=== PATIENT | female | born 1955 | race Caucasian/White ===

== ENCOUNTER → 2021-01-18 01:15 | Outpatient (CLI) | payer MEDICARE, SELFPAY ==
[2021-01-18 18:48] LABS: SARS-CoV-2 RNA PCR Negative
== END ==
PROVIDERS: PCP Family Medicine; Visit Provider Surgery
DX: Z01.812 Encounter for preprocedural laboratory examination (principal); Z20.822 Contact with and (suspected) exposure to COVID-19
CPT/HCPCS: C9803; U0003; U0005

== ENCOUNTER 2021-01-21 01:19 | Day surgery (SDC) | payer MEDICARE, OTHER, SELFPAY ==
[2021-01-11 16:04] VITALS: BMI 32.5
[2021-01-21 08:39] VITALS: BP 141/82; PULSE 119; RESP 18; TEMP 36.8; O2SAT 100; BMI 39.6
[2021-01-21 09:00] LABS: Glucose Point of Care 144 mg/dl (65-105)
[2021-01-21] MEDS: ONDANSETRON INJ 4 MG/2 ML VIAL IV PUSH (09:05)
[2021-01-21] MEDS: LACTATED RINGERS 1,000 ML 150 ML IV CONT (09:08)
--- NOTE | 2021-01-21 09:55 | P.PNAN_ITS ---
Anes - Initial Pre Proc Eval Procedure: Operation Date: 01/21/21 09:45 Proposed Procedures p Screening Colonoscopy - Jose Aguilera DO Date/Time: 01/21/21 09:55 Surgeon: Jose Aguilera DO Pre Op Diagnosis: screening for malignant neoplasm Patient Data Age: 65 Gender: F Height: 5 ft 4 in Weight: 104.9 kg Last Vital Signs Temp 98.2 F 01/21/21 08:39 Pulse 119 H 01/21/21 08:39 Resp 18 01/21/21 08:39 BP 141/82 H 01/21/21 08:39 Pulse Ox 100 01/21/21 08:39 Allergies Allergy/AdvReac Type Severity Reaction Status Date / Time codeine Allergy Severe CONFUSION Verified 01/21/21 08:37 latex Allergy Severe RASH/BREATH Verified 01/21/21 08:37 ING Home Medications Medication Instructions Recorded Confirmed Type acetaminophen [Tylenol Arthritis] 650 mg PO Q12H PRN 01/11/21 01/21/21 History aspirin 81 mg PO DAILY 01/11/21 01/21/21 History losartan 50 mg PO DAILY 01/11/21 01/21/21 History metformin 500 mg PO DAILY 01/11/21 01/21/21 History multivitamin 1 tablet PO DAILY 01/11/21 01/21/21 History pravastatin 40 mg PO DAILY 01/11/21 01/21/21 History sertraline 50 mg PO DAILY 01/11/21 01/21/21 History Laboratory Tests 01/21/21 08:58 POC Capillary Glucose 144 mg/dl H mg/dl (65-105) Patient hx anesthesia problems: none Family hx anesthesia problems: none [facility] Past Medical History Medical History (Updated 01/21/21 @ 09:55 by Reese Rand MD) Arthritis Hyperlipidemia Hypertension Social History Social History Living arrangements: alone Spiritual care concerns: No Anes - Eval Final PreProcedure Day of Procedure 01/21/21 09:55 Patient weight: morbidly obese Heart: regular rate and rhythm Lungs: clear to auscultation Airway: Mallampati scale class II Neurological: alert and oriented Last oral intake: >/= 8 hours ASA classification: III Emergent: no Anesthetic plan: proceed Anesthesia type and monitoring: general GIVS and standard monitoring Informed Consent: The patient's anesthetic plan and its attendant risks and benefits were discussed with the patient/family/POA. Questions were solicited and answers provided to the satisfaction of the patient/family/POA.
--- NOTE | 2021-01-21 10:25 | PM.IMHP ---
H&P: HPI History of Present Illness Date/Time: 01/21/21 10:25 Chief Complaint: screening for colorectal cancer for Narrative: this is a 65-year-old woman who presents for colonoscopy. Last colonoscopy was 11 years ago and was normal. She denies any hematochezia or melena. No family history of colon cancer. Review of Systems Review of Systems: All systems reviewed & are unremarkable except as noted in HPI and below Constitutional: Constitutional: Denies chills, Denies fever(s), Denies headache(s) and Denies weight loss Eyes: Eyes: Denies change in vision ENT: Denies dizziness, Denies headache(s), Denies neck mass and Denies throat swelling Cardiovascular: Cardiovascular: Denies chest pain, Denies lightheadedness and Denies dyspnea Respiratory: Respiratory: Denies cough, Denies dyspnea and Denies wheezing Gastrointestinal: Gastrointestinal: Denies abdominal pain, Denies change in bowel habits, Denies nausea and Denies vomiting Genitourinary: Genitourinary: Denies hematuria and Denies dysuria Musculoskeletal: Musculoskeletal: Reports as per HPI Integumentary/Breasts: Skin/Breast: Reports as per HPI Neurologic: Denies dizziness and Denies headache(s) Allergic/Immunologic: Allergic/Immunologic: Denies throat swelling and Denies wheezing [facility] Past Medical History Medical History (Updated 01/21/21 @ 10:26 by Jose Aguilera DO) Arthritis Hyperlipidemia Hypertension Social History Social History Living arrangements: alone Spiritual care concerns: No Meds Home Medications and Allergies Home Medications Medication Instructions Recorded Confirmed Type acetaminophen [Tylenol Arthritis] 650 mg PO Q12H PRN 01/11/21 01/21/21 History aspirin 81 mg PO DAILY 01/11/21 01/21/21 History losartan 50 mg PO DAILY 01/11/21 01/21/21 History metformin 500 mg PO DAILY 01/11/21 01/21/21 History multivitamin 1 tablet PO DAILY 01/11/21 01/21/21 History pravastatin 40 mg PO DAILY 01/11/21 01/21/21 History sertraline 50 mg PO DAILY 01/11/21 01/21/21 History Allergies Allergy/AdvReac Type Severity Reaction Status Date / Time codeine Allergy Severe CONFUSION Verified 01/21/21 08:37 latex Allergy Severe RASH/BREATH Verified 01/21/21 08:37 ING Vital Signs Vital Signs - 24 hr 01/21/21 08:39 Temperature 36.8 C Pulse Rate 119 H Respiratory Rate 18 Blood Pressure 141/82 H Pulse Oximetry 100 Exam Const: General: no acute distress and alert Orientation/consciousness: patient oriented x3 HENMT: Head: normocephalic and atraumatic Ears: hearing grossly normal bilaterally General nose exam: Normal nares present Mouth: Yes Normal oral and palatal mucosa present Eyes: Periorbital: periorbital findings normal Sclera: sclerae normal EOM: EOMs intact bilaterally Neck: Neck: normal visual inspection, no lymphadenopathy and trachea midline Chest: Chest palpation & inspection: normal inspection of the chest Resp: Effort & Inspection: normal respiratory effort Auscultation: clear to auscultation bilaterally Cardio: Jugular venous distension: no JVD Rate: regular rate Rhythm: regular rhythm Heart sounds: S1 normal heart sound present and S2 normal heart sound present Peripheral pulses: Peripheral pulses 2+ throughout GI: Inspection: normal to inspection GI Palp: Yes Soft to palpation, No Tenderness to palpation present (GI), No Guarding due to palpation present (GI) and No Rebound tenderness present Percussion: Yes normal to percussion Auscultation: normal bowel sounds : General: Yes no CVA tenderness Back/Spine/Pelvis: Back: no CVA tenderness Neuro: General: patient oriented x3, no focal motor deficits and CN's II-XI intact bilaterally Cognition (Neuro): normal cognition Speech: normal speech Motor exam (neuro): 5/5 motor strength present throughout Extrem: General: capillary refill normal and no clubbing, cyanosis or edema Assessment and Plan Assessment and plan (1) Screening for
[2021-01-21 10:43] VITALS: BP 98/58; PULSE 72; RESP 18; O2SAT 98
[2021-01-21 10:53] VITALS: BP 129/64; PULSE 67; RESP 19; O2SAT 99
[2021-01-21 11:03] VITALS: BP 146/82; PULSE 68; RESP 21; O2SAT 100
== END 2021-01-21 11:20 | disposition home or self-care (01) ==
PROVIDERS: PCP Family Medicine; Visit Provider Surgery
PROC: 0DJD8ZZ Inspection of Lower Intestinal Tract, Via Natural or Artificial Opening Endoscopic (ICD-10-PCS; CPT 45378; principal; 2021-01-21 09:45)
DX: Z12.11 Encounter for screening for malignant neoplasm of colon (principal); K57.30 Diverticulosis of large intestine without perforation or abscess without bleeding; K64.8 Other hemorrhoids; I10 Essential (primary) hypertension; E78.5 Hyperlipidemia, unspecified; Z79.82 Long term (current) use of aspirin; E66.01 Morbid (severe) obesity due to excess calories; Z68.39 Body mass index [BMI] 39.0-39.9, adult
CPT/HCPCS: G0121; 82948; J2405; J2704; J7120

== ENCOUNTER 2021-05-03 07:52 | Outpatient (CLI) | payer MEDICARE, OTHER, SELFPAY ==
--- NOTE | 2021-05-03 09:30 | EST_ITS ---
Patient Info Name: Daniella Hutson Age: 65 years : 1955 Gender: Female Ht: 62 in Wt: 220 lbs BSA: 2.14 m2 Exam Date: 05/03/2021 9:37 AM Exam Location: [facility] Patient Status: Outpatient Admit Date: 05/03/2021 Staff Ordering Physician: Fermin Castro MD Attending Provider: Fermin Castro MD Exam Type: CA stress augie w NM Study Info A nuclear stress test was performed. History/Risk Factors Hypertension: Yes Diabetes Mellitus: Yes Summary 1. 1. Negative lexiscan stress test for ischemic ST changes by ECG criteria. 2. 2. Stable hemodynamics throughout the test. 3. 3. Nuclear scan to follow and will be reported separately. Please correlate with it. Protocol: LEXISCAN Stress ECG Details Stage: REST Duration (min): 2 min : 46 sec HR (bpm): 75 SBP (mmHg): --- DBP (mmHg): --- Stage: REST Duration (min): 13 min : 51 sec HR (bpm): 78 SBP (mmHg): --- DBP (mmHg): --- Stage: STAGE 1 Duration (min): 0 min : 11 sec HR (bpm): 72 SBP (mmHg): --- DBP (mmHg): --- Stage: RECOVERY Duration (min): 0 min : 48 sec HR (bpm): 94 SBP (mmHg): --- DBP (mmHg): --- Stage: RECOVERY Duration (min): 1 min : 48 sec HR (bpm): 96 SBP (mmHg): --- DBP (mmHg): --- Stage: RECOVERY Duration (min): 2 min : 48 sec HR (bpm): 89 SBP (mmHg): 138 DBP (mmHg): 68 Stage: RECOVERY Duration (min): 3 min : 48 sec HR (bpm): 88 SBP (mmHg): 135 DBP (mmHg): 65 Stage: RECOVERY Duration (min): 4 min : 48 sec HR (bpm): 91 SBP (mmHg): 128 DBP (mmHg): 67 Stage: RECOVERY Duration (min): 5 min : 48 sec HR (bpm): 86 SBP (mmHg): 132 DBP (mmHg): 63 Stage: RECOVERY Duration (min): 6 min : 20 sec HR (bpm): 87 SBP (mmHg): 132 DBP (mmHg): 63 Rest HR: 78 bpm Peak HR: 106 bpm Peak Sys BP: 138 mmHg Max Pred HR: 155 bpm % Max Pred HR: 68 % Target HR: 132 bpm Max RPP: 14,628 bpm*mmHg Termination Reason: Completed Protocol Cardiac Symptoms: None Total Time: 0 min : 11 sec Peak Lr BP: 68 mmHg Total Dose: 0.4 mg Resting ECG Sinus Rhythm with RBBB. Stress ECG No ischemic ST segment changes. Arrhythmias None. Report Signatures
--- NOTE | 2021-05-03 11:51 | WPDCARIOSTRE ---
Nuclear Stress Test INDICATIONS Indications: SOB, fatigue PROCEDURE Procedure Performed: Myocardial Perf Spect-Multi Procedure: Patient underwent a lexiscan stress test and immediately was injected with 32.3 mCi of cardiolyte. Multiple tomographic images were obtained. These are of good quality. There is evidence of moderate size, severe apical perfusion defect during stress imaging. A separate resting images were obtained after patient was injected with 10 mCi of cardiolote. Multiple tomographic images were obtained. These are of good quality. There is evidence of moderate size, severe apical perfusion defect during rest imaging. CONCLUSION Conclusion: 1. Myocardial perfusion imaging demonstrating a fixed moderate size apical perfusion defect during rest and stress imaging consistent with artifact. 2. No evidence of reversible ischemia. 3. Left ventriculogram demonstrates normal measured ejection fraction of 74%. No wall motion abnormalities. The left ventricle is small with EDV of 34 m. 4. TID score is normal at 1.15.
== END 2021-05-03 07:53 | disposition home or self-care (01) ==
LOC: CHSIMG 07:55
PROVIDERS: PCP Family Medicine; Visit Provider Family Medicine
DX: R94.31 Abnormal electrocardiogram [ECG] [EKG] (principal)
CPT/HCPCS: 78452; 93017; A9502; J2785

== ENCOUNTER 2021-05-18 09:15 | Outpatient (CLI) | payer MEDICARE, OTHER, SELFPAY ==
--- NOTE | ~2021-05-18 | XR_ITS ---
XR hand RT min 3V DATE: 05/18/2021 09:44 INDICATION: Palm pain, right hand hand TECHNIQUE: 3 views COMPARISON: None FINDINGS: There is polyarticular osteoarthritis, involving the first carpometacarpal joint, metacarpo phalangeal joints (especially first and second), as well as multiple interphalangeal joints. No fracture or dislocation, periosteal reaction or bone destruction. IMPRESSION: Polyarticular osteoarthritis Reviewed, dictated and finalized at location A.
== END 2021-05-18 09:16 | disposition home or self-care (01) ==
LOC: CHSIMG 09:18
PROVIDERS: PCP Family Medicine; Visit Provider Orthopaedic Surgery
DX: M79.641 Pain in right hand (principal)
CPT/HCPCS: 73130

== ENCOUNTER 2022-11-15 08:19 | Outpatient (CLI) | payer MEDICARE, SELFPAY | END 2022-11-15 08:20 | disposition home or self-care (01) | LOC: CHSCARD 08:21 | PROVIDERS: PCP Family Medicine; Visit Provider Family Medicine | DX: R05.3 Chronic cough (principal) | CPT/HCPCS: 94060; 94726; 94729 ==

== ENCOUNTER 2023-11-15 12:02 | Emergency (ER) | payer MEDICARE, SELFPAY ==
--- NOTE | 2023-11-15 12:05 | ED.URI ---
HPI - URI/Sore Throat General Chief Complaint: Upper Respiratory Infection Stated Complaint: bronchitis Time Seen by Provider: 11/15/23 12:05 Source: patient Mode of arrival: ambulatory Limitations: no limitations History of Present Illness HPI Narrative: Daniella is a 68-year-old female patient presenting to the clinic today with complaints of cough and chest congestion x1 week. She reports no fever or chills. She denies any chest pain or shortness of breath. History of asthma/bronchitis. Has been using her albuterol inhaler. MD elicited complaint: sore throat and nasal congestion Related Data Home Medications Medication Instructions Recorded Confirmed aspirin 81 mg tablet 81 mg PO DAILY 01/11/21 11/15/23 losartan 50 mg tablet 50 mg PO DAILY 01/11/21 11/15/23 multivitamin 1 tablet PO DAILY 01/11/21 11/15/23 pravastatin 40 mg tablet 40 mg PO DAILY 01/11/21 11/15/23 sertraline 50 mg tablet 50 mg PO DAILY 01/11/21 11/15/23 famotidine 20 mg tablet 20 mg PO DAILY 11/15/23 11/15/23 Allergies Allergy/AdvReac Type Severity Reaction Status Date / Time codeine Allergy Severe CONFUSION Verified 11/15/23 12:13 latex Allergy Severe RASH/BREATH Verified 11/15/23 12:13 ING Review of Systems Review of Systems: Pertinent positives per HPI. Patient denies any fever, chills, rash, headache, visual changes, dizziness,shortness of breath, chest pain, palpitations, nausea, vomiting, diarrhea, constipation, abdominal pain, or any urinary issues. [facility] Past Medical History Medical History Arthritis Depression Hyperlipidemia Hypertension Osteoporosis Urinary frequency Surgical History Surgical History History of cholecystectomy 1997 Family History Family History Other Arthritis Depression Diabetes mellitus HLD (hyperlipidemia) Heart disease Hypertension Lung cancer Stomach cancer Social History Social History Smoking status: Never smoker Alcohol intake: never Substance use: never Substance use type: does not use Living arrangements: alone Occupation/Education: retired Gender identity (if verbalized by the patient): Female Spiritual care concerns: No Comments At the time of my signature, I reviewed and agree with the nursing past medical, surgical, social, and family history. There is no relevant family history pertinent to the patient complaint. Exam Narrative: General: Well-developed, well nourished, in no apparent distress Head: Normocephalic, atraumatic Eyes: Pupils equally round and reactive to light bilaterally, EOM intact, sclera and conjunctive clear, no discharge, lids normal Ears: TMs intact and clear, ear canals clear, no drainage, grossly hearing normal. Nose: Nares patent, clear discharge, no inflammation, no sinus tenderness. Mouth: Oral pharynx without lesions or masses, good dentition, MMM. Postnasal drip Neck: Supple, trachea midline, no enlargement of anterior or posterior cervical nodes, no thyroid masses or goiter palpable. Cardio: Regular rate and rhythm, s1 and s2 normal, no murmur appreciated. Resp: Clear to auscultation bilaterally, no rhonchi, rales, wheezing or rubs Course Course Emergency Course: Portions of this record may have been created with voice recognition software. Level of Care: Express Care Visit Vital Signs Vital signs: Vital signs reviewed MDM - URI/Sore Throat MDM Narrative Medical decision making narrative: At the time of visit patient is resting comfortably on the exam table. Patient appears to be nontoxic.\ Plan: Lung sounds are clear in the office today. I suspect patient has URI. Prescription for Tessalon Perles and prednisone was sent to the pharmacy. Supportive measures were
[2023-11-15 12:23] VITALS: BP 136/51; PULSE 90; RESP 16; TEMP 37; O2SAT 98
== END 2023-11-15 12:39 | disposition home or self-care (01) ==
LOC: EXPCOLL 12:11
PROVIDERS: Emergency Provider Nurse Practitioner Family; PCP Family Medicine
DX: J06.9 Acute upper respiratory infection, unspecified (principal); E78.5 Hyperlipidemia, unspecified; I10 Essential (primary) hypertension; M19.90 Unspecified osteoarthritis, unspecified site; F32.A Depression, unspecified; Z79.82 Long term (current) use of aspirin; M81.0 Age-related osteoporosis without current pathological fracture
CPT/HCPCS: 99213; G0463

== ENCOUNTER 2023-12-06 11:57 | Outpatient (CLI) | payer MEDICARE, SELFPAY ==
--- NOTE | ~2023-12-06 | XR_ITS ---
XR lumbar spine 2-3V DATE: 12/06/2023 12:35 INDICATION: Back pain TECHNIQUE: AP, lateral, coned lateral lumbosacral views COMPARISON: None FINDINGS: Osteopenia. Diffuse idiopathic skeletal hyperostosis of the thoracic spine. Moderately prominent degenerative disease at L1-2. Mild degenerative disc disease at L2-3, L3-4 and L 4-5. There is severe degenerative disc disease at L5-S1. There is prominent degenerative change at the apophyseal joints throughout the lumbar spine. There is associated grade 1 anterolisthesis at L3-4. No fracture or bone destruction of the lumbar spine is evident. The sacroiliac joints are intact. Status post cholecystectomy. IMPRESSION: Prominent lumbar spondylosis Diffuse idiopathic skeletal hyperostosis of the thoracic spine Reviewed, dictated and finalized at location B.
== END 2023-12-06 11:58 | disposition home or self-care (01) ==
PROVIDERS: PCP Family Medicine; Visit Provider Family Medicine
DX: M54.50 Low back pain, unspecified (principal); M43.06 Spondylolysis, lumbar region; M48.16 Ankylosing hyperostosis [Forestier], lumbar region
CPT/HCPCS: 72100

== ENCOUNTER 2023-12-09 09:51 | Outpatient (CLI) | payer MEDICARE, SELFPAY ==
--- NOTE | ~2023-12-09 | MR_ITS ---
MRI of the lumbar spine Clinical History: Pain Technique: Axial T2-weighted images, and sagittal T1-weighted, T2-weighted, and T2 fat-sat images wer e acquired. Findings: No fracture identified. Minimal grade 1 anterolisthesis of L3 over L4 noted. No suspicious bone marrow signal abnormality seen. At L1-L2, there is mild disc bulge and moderate to advanced facet arthropathy. No central canal steno sis. There is mild to moderate bilateral neural foraminal narrowing. At L2-L3, there is minimal disc bulge and severe facet arthropathy. No central canal stenosis. There is moderate left neural foraminal narrowing. Minimal right neural foraminal narrowing. L3-L4, disc bulge and severe facet arthropathy result in severe spinal canal stenosis/thecal sac comp ression. There is moderate left neural foraminal narrowing, and minimal right neural foraminal narrow ing. At L4-L5, there is mild disc bulge and severe facet arthropathy, resulting in moderate spinal canal s tenosis/thecal sac compression. There is severe bilateral neural foraminal narrowing. At L5-S1, disc bulge and moderate facet arthropathy are present. No tahir central canal stenosis. The re is severe bilateral neural foraminal narrowing. Paravertebral soft tissues are unremarkable. Impression: Severe degenerative spondylosis, especially at L3-L4, L4-L5, and L5-S1. Minimal grade 1 anterolisthesis of L3 over L4. Reviewed, dictated and finalized at [facility]. Impression: Severe degenerative spondylosis, especially at L3-L4, L4-L5, and L5-S1. Minimal grade 1 anterolisthesis of L3 over L4.
== END 2023-12-09 09:52 | disposition home or self-care (01) ==
LOC: CHSIMG 09:53
PROVIDERS: PCP Family Medicine; Visit Provider Family Medicine
DX: M54.50 Low back pain, unspecified (principal); M43.06 Spondylolysis, lumbar region
CPT/HCPCS: 72148

== ENCOUNTER 2024-05-16 12:19 | Outpatient (CLI) | payer MEDICARE, SELFPAY ==
[2024-05-16 12:34] LABS: Basophils Absolute Auto 0.05 K/mm3 (0.00-0.10); Basophils Percent Auto 0.9 % (0.0-1.0); Eosinophils Percent Auto 3.7 % (1.0-6.0); Hematocrit 38.7 % (35.0-42.0); Hemoglobin 13.3 g/dL (11.7-13.8); Immature Granulocyte Absolute 0.02 K/mm3 (0.00-0.00); Immature Granulocyte Percent A 0.4 % (0.0-0.0); Lymphocytes Absolute Auto 1.81 K/mm3 (1.10-4.50); Lymphocytes Percent Auto 33.1 % (18.0-42.0); Mean Corpuscular HGB Conc 34.4 g/dL (32-36); Mean Corpuscular Hemoglobin 30.2 pg (27.0-31.0); Mean Corpuscular Volume 87.8 fL (78.0-102.0); Mean Platelet Volume 9.7 fl (9.2-11.8); Monocytes Absolute Auto 0.38 K/mm3 (0.10-0.90); Monocytes Percent Auto 6.9 % (2.0-11.0); Neutrophils Absolute Auto 3.01 K/mm3 (1.70-7.20); Platelet Count Result 203 K/mm3 (150-420); Red Blood Count 4.41 M/mm3 (4.20-5.40); Red Cell Distribution Width 12.7 % (11.6-14.4); White Blood Count 5.5 K/mm3 (4.8-10.8)
[2024-05-16 17:37] LABS: Alanine Aminotransferase 21 U/L (14-59); Alkaline Phosphatase 88 U/L (46-116); Anion Gap 9 mmol/L (4-12); Aspartate Amino Transferase 17 U/L (15-37); Bilirubin,Total 0.7 mg/dL (0.00-1.00); Blood Urea Nitrogen 21 mg/dL (7-18); Calcium 9.2 mg/dL (8.5-10.1); Carbon Dioxide 28 mmol/L (21-32); Chloride 103 mmol/L (98-108); Estimated Glomerular Filt Rate 60; Glucose 105 mg/dL (70-99); Osmolality Calculated 293 mOsm/kg (285-295); Potassium 4.2 mmol/L (3.5-5.1); Sodium 140 mmol/L (136-145); Thyroid Stimulating Hormone 2.63 uIU/mL (0.36-3.74); Total Protein 7.2 g/dL (6.4-8.2)
[2024-05-16 17:49] LABS: Creatinine Urine 120.44 mg/dL (40-278); MALB Creatinine Ratio 10.7 mg/g (0-30); Microalbumin Urine Random < 13.0 mg/L
[2024-05-17 06:48] LABS: Triglycerides 87 mg/dL (0-150)
[2024-05-17 06:55] LABS: Cholesterol 153 mg/dL (0-200); HDL Direct 66 mg/dL (40-60); LDL Cholesterol Calculated 70 mg/dL (<130)
== END 2024-05-16 12:20 | disposition home or self-care (01) ==
LOC: CHSLAB 12:22
PROVIDERS: PCP Family Medicine; Visit Provider Family Medicine
DX: I10 Essential (primary) hypertension (principal)
CPT/HCPCS: 36415; 80053; 80061; 82043; 84443; 85025

== ENCOUNTER 2025-06-13 11:55 | Outpatient (CLI) | payer MEDICARE, SELFPAY ==
--- NOTE | ~2025-06-13 | XR_ITS ---
XR lumbar spine 2-3V Indication: BACK PAIN, NECK PAIN Comparison: None Findings: Moderate loss of vertebral height. Grade 1 anterolisthesis of L3 on L4, no acute fracture. There is a remote inferior endplate fracture of L4. Moderate to severe loss of disc height throughout most marked at L5-S1. Soft tissues unremarkable Impression: No acute abnormality. Reviewed, dictated and finalized at location P. Impression: No acute abnormality.
--- NOTE | ~2025-06-13 | XR_ITS ---
XR_CERV2-3V_CR Indication: BACK PAIN, NECK PAIN Comparison: None Findings: Moderate osteopenia. Moderate loss of vertebral height. No fracture or subluxation. Moderate loss of disc height at C4-5 C5-6 and C6-7 Soft tissues unremarkable Impression: No acute abnormality. Reviewed, dictated and finalized at location P. Impression: No acute abnormality.
== END 2025-06-13 11:56 | disposition home or self-care (01) ==
LOC: CHSIMG 11:57
PROVIDERS: PCP Family Medicine; Visit Provider Nurse Practitioner Family
DX: M54.9 Dorsalgia, unspecified (principal); M54.2 Cervicalgia
CPT/HCPCS: 72040; 72100

== ENCOUNTER 2025-07-17 14:08 | Outpatient (CLI) | payer MEDICARE, SELFPAY ==
--- NOTE | ~2025-07-17 | MR_ITS ---
EXAM/PROCEDURE: MR lumbar spine wo con HISTORY: MENOPAUSAL; L4 FRACTURE COMPARISON: 12/09/2023 TECHNIQUE: Noncontrast enhanced multiplanar lumbar spine MRI performed. FINDINGS: Approximately 20% compression fracture of L4 has developed since the previous exam primarily associated with cephalad compression of the inferior endplate. The intervertebral disc space is widened measuring 1.5 cm compared to approximately 9 mm on the previous exam. No significant fluid intense signal however is seen within the disc space. No significant retropulsion appreciated. Degenerative changes are present at essentially all levels involving disc spaces and posterior elements. Partially visualized 4 cm cystic mass in the right kidney. The conus tapers normally at the level of L2. Level specific findings as follows: T11-T12: Mild degenerative change T12-L1: Mild degenerative change L1-2: Mild to moderate degenerative disc and facet changes with mild to moderate bilateral neural foraminal narrowing. No spinal canal stenosis or discrete disc protrusion. L2-3: Mild to moderate degenerative disc and facet changes with mild to moderate bilateral neural foraminal narrowing. No spinal canal stenosis or discrete disc protrusion. L3-4: Approximately 5 mm of grade 1 anterolisthesis L3 on L4 which appears to be associated with severe facet hyperostosis and thickening of ligamentum flavum, as well as moderately severe degenerative changes. Moderately severe spinal canal stenosis. See image 31 series 5. No discrete disc protrusion. Moderately severe bilateral neural foraminal narrowing. Overall appearance is stable to slightly worse compared to the 2023 exam. L4-5: Severe hyperostosis and thickening of the ligamentum flavum as well as mild to moderate posterior spondylosis also present at this level with moderately severe spinal canal stenosis, also similar to slightly worse compared to the 2023 exam. Moderate to severe bilateral neural foraminal narrowing. L5-S1: Moderately severe degenerative disc changes and severe hyperostosis of the facet joints results in stenosis in both lateral recesses. No spinal canal stenosis or discrete disc protrusion. Moderately severe bilateral neural foraminal narrowing. IMPRESSION: 1. Approximately 20% compression fracture of L4 involving the inferior endplate with thickened appearance of the intervertebral disc. If discitis is a clinical concern, correlation with CRP and white count as well as follow-up surveillance MRI with contrast recommended. 2. No significant retropulsion at L4; moderately severe spinal canal stenosis at this level appears similar to the 2023 exam, slightly worse on today's study. 3. Moderately severe spinal canal stenosis at L3-4 which is stable to slightly worse on today's study. 4. Other findings as above. Reviewed, dictated and finalized at location A. [facility] IMPRESSION: 1. Approximately 20% compression fracture of L4 involving the inferior endplate with thickened appearance of the intervertebral disc. If discitis is a clinica l concern, correlation with CRP and white count as well as follow-up surveillan ce MRI with contrast recommended. 2. No significant retropulsion at L4; moderately severe spinal canal stenosis a t this level appears similar to the 2023 exam, slightly worse on today's study. 3. Moderately severe spinal canal stenosis at L3-4 which is stable to slightly worse on today's study. 4. Other findings as above.
--- NOTE | ~2025-07-17 | DEXA_ITS ---
Bone Density Report Name: RITA STEWART Age: 69 Sex: Female Ethnicity: White Date of : 1955 Indication: postmenopausal; screening for osteoporosis; parental hip fracture; height loss; Referring Provider: LINDA, ADINA Lala Study: Bone densitometry was performed. Exam Date: July 17, 2025 Accession number: [id number] Bone Density: Region BMD T-score Z-score Classification AP Spine(L1-L4) 1.246 1.8 3.9 Normal Femoral Neck (Left) 0.895 0.4 2.2 Normal Total Hip (Left) 0.953 0.1 1.6 Normal Femoral Neck (Right) 0.777 -0.6 1.1 Normal Total Hip (Right) 0.948 0.0 1.5 Normal Femoral Neck Mean 0.836 -0.1 1.7 Normal Total Hip Mean 0.950 0.1 1.6 Normal World Health Organization criteria for BMD impression classify patients as: Normal (T-score at or above -1.0), Osteopenia (T-score between -1.0 and -2.5), or Osteoporosis (T-score at or below -2.5). 10-year Fracture Risk: FRAX not reported because: All T-scores for Spine Total, Hip Total, Femoral Neck at or above -1.0 Clinical Information Provided by Patient: Parent has had a hip fracture Has used the following medications: Vitamin D Patient maximum height was 63. Menopause Age: 50 No regular weight bearing exercise Does not regularly consume dairy products Drinks caffeinated beverages Onset of menses at age 12 Number of children 4 Impression: The patient has normal bone mass. The patient has risk factors, including: parental hip fracture. Discussion: BONE DENSITY IS ABOVE THE MINIMUM DESIRABLE LEVEL AT ALL SKELETAL SITES TESTED. This patient?s bone mineral density is above the minimum desirable level (T-score -1.0 or better) at all sites measured. The patient should follow a healthful lifestyle (good nutrition with adequate calcium and vitamin D, and appropriate weight-bearing exercise). Follow-Up: Consider repeating this study in 5 years or sooner if there is some new clinical indication. Reported by: REENA on 07/17/2025 2:35:00 PM. Reviewed, dictated and finalized at location A.
--- OUTSIDE RECORDS SUMMARY | 2025-07-17 14:36 | XMS_ITS | Clinical Summary ---
Author Organization [facility] [address] Address [address] [place] [id number] Care Team Providers Care Fan Runner Name Role Phone Unavailable Primary Care Provider Unavailabl e Allergies Active Allergy Reactions Criticality Noted Date Comments Codeine Hallucination Medium 06/24/2022 Latex Rash Medium 06/24/2022 Medications aspirin (ECOTRIN EC) 81 mg Tablet, Delayed Release (E.C.) Take 81 mg by mouth daily. Active losartan (COZAAR) 50 mg tablet Take 50 mg by mouth daily. 2 Active pravastatin (PRAVACHOL) 40 mg tablet Take 40 mg by mouth daily at bedtime. 2 Active sertraline (ZOLOFT) 50 mg tablet Take 50 mg by mouth daily. Active hydrocortisone acetate (ANUSOL-HC) 25 mg SuppositoryInd ications:Liche n planus Insert 1/2 suppository (12.5 mg) VAGINALLY (not rectally) qhs. 30 Suppository 1 4 Active triamcinolone acetonide (KENALOG) 0.5 % OintmentIndica tions:Lichen sclerosus of vulva APPLY A QUARTER SIZE AMOUNT OF OINTMENT TOPICALLY TWICE DAILY TO VULVAR AND PERIANAL SKIN 30 Gram 1 5 Active betamethasone valerate (VALISONE) 0.1 % OintmentIndica tions:Lichen sclerosus of vulva,Lichen simplex chronicus Apply quarter-size amount to vulvar area and perianal skin BID for 1 week, then daily. 40 Gram 1 5 Active Active Problems Problem Noted Date Diagnosed Date Mixed stress and urge urinary incontinence 02/03 Lichen sclerosus of vulva 03/05/2024 Lichen planus 03/05/2024 Lichen simplex chronicus 03/05/2024 Encounters Date Type Department Care Team Description 06/25/2025 External Device Data [facility] ABSTRACTION Provider, Abstract 06/24/2025 External Device Data [facility] ABSTRACTION Provider, Abstract 05/20/2025 External Device Data [facility] ABSTRACTION Provider, Abstract from Last 3 Months Family History Relation Name Status Comments Brother Alive Daughter 1 Alive Daughter 2 Alive Father Maternal Grandfather Maternal Grandmother Mother Paternal Grandfather Paternal Grandmother Sister 1 Alive Sister 2 Alive Son 1 Alive Son 2 Social History Tobacco Use Types Packs/Day Years Used Date Smoking Tobacco: Never Smokeless Tobacco: Never Tobacco Cessation:Counseling Given: Not Answered Alcohol Use Standard Drinks/Week Comments Never 0 (1 standard drink = 0.6 oz pur e alcohol) mother was alcoholic Comments No Sex and Gender Information Value Date Recorded Sex Assigned at Not on file 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 Gender Identity Not on file Sexual Orientation Not on file Last Filed Vital Signs Vital Sign Reading Time Taken Comments Blood Pressure 118/64 03/14/2025 1:19 PM CDT Pulse - - Temperature - - Respiratory Rate - - Oxygen Saturation - - Inhaled Oxygen Concentration - - Weight 94.9 kg (209 lb 3.2 oz) 03/14/2025 1:19 P M CDT Height 157.5 cm (5' 2) 03/14/2025 1:19 PM CDT Body Mass Index 38.26 03/14/2025 1:19 PM CDT Plan of Treatment Upcoming Encounters Date Type Department Care Team (Late st Contact Info) Description 10/09/2025 10:30 AM 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 SPECIALIST Office Visit [facility] Minimally Invasive Gynecology [address] [place] [address] Milo Lyles MD [address] [place] [address] Health Maintenance Due Date Last Done Comments DIABETES ANNUAL FOOT EXAM 1973 DIABETES HBA1C Q 6 MONTHS 1973 DIABETES MICROALBUMIN ANNUAL SCREEN 1973 LDL CHOLESTEROL ANNUAL 1973 DTAP/TDAP/TD VACCINES (1 - Tdap) 1974 PNEUMOCOCCAL VACCINE 50+ YEA RS (1 of 2 - PCV) 1974 COLORECTAL SCREENING 2000 Colorectal Cancer Screening 2000 FIT-DNA Q 3 years 2000 FIT/FOBT Q 1 year 2000 Flex Sig/CT Colonography Q 5 years 2000 ZOSTER VACCINE (1 of 2) 2005 OSTEOPOROSIS SCREENING 2020 INFLUENZA VACCINE (#1) 2025 BREAST CANCER SCREENING 04/08/2025 04/08/20, 04/08/2024, 04/08/2024, Additional history exists DIABETES ANNUAL RETINAL EXAM 11/25/2025 11/25/2024 RSV VACCINE (60+ or ) (1 - 1-dose 75+ series) 2030 Insurance MEDICARE PART A AND B
--- OUTSIDE RECORDS SUMMARY | 2025-07-17 14:36 | XMS_ITS | Clinical Summary ---
Author Organization [facility] Address [address] [place] [phone] Care Team Providers Care Hydraulic Strainer Operator Name Role Phone Fermin Castro MD Primary Care Provide r Allergies Active Allergy Reactions Criticality Noted Date Comments Codeine Hallucinations Medium 06/24/2022 Latex Rash Medium 06/24/2022 Medications metFORMIN (GLUCOPHAGE) 500 mg tablet Take 500 mg by mouth 2 (two) times a day 05/27/2022 Active losartan (COZAAR) 50 mg tablet Take 50 mg by mouth daily 05/27/2022 Active pravastatin (PRAVACHOL) 40 mg tablet Take 40 mg by mouth nightly 05/27/2022 Active sertraline (ZOLOFT) 50 mg tablet Take 50 mg by mouth daily 05/27/2022 Active aspirin 81 mg enteric coated tablet Take 81 mg by mouth daily Active famotidine (PEPCID) 20 mg tablet Take 20 mg by mouth 2 (two) times a day Active no115/iron/folic acid ( 19 ORAL) Take by mouth Active Lactobacillus acidophilus (PROBIOTIC ORAL) Take by mouth Active Active Problems Problem Noted Date Diagnosed Date Morbid (severe) obesity due to excess calories 1 Body mass index 40.0-44.9, adult (CMS/HCC) 06/24 Palpitations 06/24/2022 Essential hypertension 06/24/2022 Diabetes mellitus type II, non insulin dependent 06/24/2022 History of syncope 06/24/2022 Family History Medical History Relation Name Comments Breast cancer Neg Hx Ovarian cancer Neg Hx Thyroid cancer Neg Hx Relation Name Status Comments Daughter Alive Social History Tobacco Use Types Packs/Day Years Used Date Smoking Tobacco: Never Smokeless Tobacco: Never Tobacco Cessation:Counseling Given: Not Answered Comments No Sex and Gender Information Value Date Recorded Sex Assigned at Not on file Legal Sex Female 4:11 PM METAL TEMPLATE MAKER Gender Identity Not on file Sexual Orientation Not on file Obstetrics History Para Term AB IAB SAB Ectopic Multiple Livin g Live Births 4 4 4 Date Outcome GA Total Labor Labor/2nd/3rd Weight Sex Type Anes PTL Nithya A1 A5 Name Clin Term Term Term Term Last Filed Vital Signs Vital Sign Reading Time Taken Comments Blood Pressure 122/74 08/12/2022 2:39 PM METAL TEMPLATE MAKER Pulse 90 08/12/2022 2:39 PM METAL TEMPLATE MAKER Temperature - - Respiratory Rate - - Oxygen Saturation 96% 08/12/2022 2:39 PM METAL TEMPLATE MAKER Inhaled Oxygen Concentration - - Weight 98.4 kg (217 lb) 08/12/2022 2:39 PM METAL TEMPLATE MAKER Height 157.5 cm (5' 2) 08/12/2022 2:39 PM METAL TEMPLATE MAKER Body Mass Index 39.69 08/12/2022 2:39 PM METAL TEMPLATE MAKER Plan of Treatment Health Maintenance Due Date Last Done Comments Albumin Creatinine Ratio, Urine 1955 Colon Cancer Screening-Colonoscopy 1955 Depression Screening 1955 Fall Risk Assessment 1955 Hemoglobin A1C 1955 Hepatitis C Screening 1955 Osteoporosis Screening-Bone Density Scan 1955 eGFR 1955 Dilated Eye Exam 1955 Foot Exam 1955 Hepatitis B Screening 1973 Zoster Vaccine (1 of 2) 2005 Pneumococcal vaccine 65+ (2 of 2 - PCV) 05/23/2020 05/23/2019 Well Visit 65+ 2020 Lipid Panel 06/24/2023 06/24/2022 Breast Cancer Screening-Mammogram 04/08/2025 04/08/2024, 02/28/2023, 02/24/2022, Additional history exists Influenza Vaccine (#1) 2025 9, 06/01/2018, 06/23/2017, Additional history exists DTaP/Tdap/Td Vaccine (2 - Td or Tdap) 12/13/2027 12/12/2017 Procedures Procedure Name Priority Date/Time Associated Diagnosis Comments SCREENING MAMMOGRAM BILATERAL W SALEEM Schedule Routine, Read Routine (OP Routine) 04/08/2024 12:27 PM CDT Screening mammogram, encounter for POCT LIPID PANEL Routine 06/24/2022 9:08 AM CDT Lipid screening from Last 3 Months or Most Recently Relevant to Health Maintenance Results * Screening Mammogram Bilateral W Saleem (04/08/2024 12:27 PM CDT) Anatomical Region Laterality Modality Breast Bilateral Mammography 04/08/2024 12:4 4 PM CDT Impressions 04/08/2024 12:44 PM CDT No evidence of malignancy. FINAL ASSESSMENT: BI-RADS Category 1: Negative. RECOMMENDATION: Recommend return for annual screening mammogram in 12 months. Electronically signed by: Jorge Luis West M.D. Narrative 04/08/2024 12:44 PM CDT EXAMINATION: BILATERAL SCREENING MAMMOGRAM COMPARISON: 02/28/2023, 02/24/2022, 11/25/2020. TECHNIQUE: Full-field 2D and digital breast tomosynthesis (DBT) images were obtained. CAD was utilized. BREAST PARENCHYMAL COMPOSITION: The breasts are almost entirely fatty. FINDINGS: There is no suspicious mass, calcification, or distortion. There has been no significant interval change from the prior study. Self Screening Mammogram IMG MAMMO PROCEDURES Fi nal Result * POCT lipid panel (06/24/2022 9:08 AM CDT) Cholesterol, POC 137 mg/dL HDL, POC 55 mg/dL Triglycerides, POC 125 mg/dL LDL Cholesterol POC 57 mg/dL Chol/HDL Ratio, POC 2.5 Non-HDL Cholesterol, POC 82 mg/dL Cholesterol Total, POC 137 mg/dL Capillary blood 06/24/2022 9 :08 AM CDT [facility] Isaura Peter MD POINT OF CARE TEST ORDDebora SILVA Final Result from Last 3 Months or Most Recently Relevant to Health Maintenance Insurance [employer] MEDICARE COMMERCIAL GENERIC MEDIC[place] [address] Care Teams Hydraulic Strainer Operator Relationship Specialty Start Date End Date Fermin Castro MD [address] [place] [address] PCP - General 04/17/18
== END 2025-07-17 14:09 | disposition home or self-care (01) ==
LOC: CHSIMG 14:11
PROVIDERS: PCP Family Medicine; Visit Provider Nurse Practitioner Family
DX: Z78.0 Asymptomatic menopausal state (principal); S32.049A Unspecified fracture of fourth lumbar vertebra, initial encounter for closed fracture; M48.061 Spinal stenosis, lumbar region without neurogenic claudication
CPT/HCPCS: 72148; 77080

== ENCOUNTER 2025-07-25 13:18 | Outpatient (CLI) | payer MEDICARE, SELFPAY ==
--- OUTSIDE RECORDS SUMMARY | 2025-07-24 13:18 | XMS_ITS | Encounter Summary ---
Author Organization [facility] Address [address] [place] [address] Care Team Providers Care Manugrapher Name Role Phone Fermin Castro MD Primary Care Provide r Reason for Referral * Diagnostic Imaging (Routine) - Closed Specialty Diagnoses / Procedures Referred By Contac t Referred To Contact Diagnoses Screening mammogram, encounter for Procedures Screening Mammogram Bilateral W Saleem Screening Mammogram, Self [facility] Referral ID Status Reason Start Date Expiration Date Visits Re quested Visits Authorized [id number] Closed 05/22/2025 06/21/2026 1 1 E BUILDER Reason for Visit * Diagnostic Imaging (Routine) - Closed Specialty Diagnoses / Procedures Referred By Contac t Referred To Contact Diagnoses Screening mammogram, encounter for Procedures Screening Mammogram Bilateral W Saleem Screening Mammogram, Self [facility] Referral ID Status Reason Start Date Expiration Date Visits Re quested Visits Authorized [id number] Closed 05/22/2025 06/21/2026 1 1 Encounter Details Date Type Department Care Team (Latest Contact Info) Description 07/24/2025 1:18 PM CANOE BUILDER - 07/24/2025 11:59 PM CANOE BUILDER Hospital Encounter [facility] Imaging and Radiology [address] [place] [phone] Screening mammogram, encounter for Discharge Disposition: Discharge to home or self care Social History Tobacco Use Types Packs/Day Years Used Date Smoking Tobacco: Never Smokeless Tobacco: Never Comments No Sex and Gender Information Value Date Recorded Sex Assigned at Not on file Legal Sex Female 4:11 PM CANOE BUILDER Gender Identity Not on file Sexual Orientation Not on file documented as of this encounter Last Filed Vital Signs Vital Sign Reading Time Taken Comments Blood Pressure - - Pulse - - Temperature - - Respiratory Rate - - Oxygen Saturation - - Inhaled Oxygen Concentration - - Weight 86.2 kg (190 lb) 07/24/2025 1:25 PM CANOE BUILDER Height 154.3 cm (5' 0.75) 07/24/2025 1:25 PM CS T Body Mass Index 36.2 07/24/2025 1:25 PM CANOE BUILDER documented in this encounter Medications at Time of Discharge aspirin 81 mg enteric coated tablet Take 81 mg by mouth daily famotidine (PEPCID) 20 mg tablet Take 20 mg by mouth 2 (two) times a day Lactobacillus acidophilus (PROBIOTIC ORAL) Take by mouth losartan (COZAAR) 50 mg tablet Take 50 mg by mouth daily 05/27/2022 metFORMIN (GLUCOPHAGE) 500 mg tablet Take 500 mg by mouth 2 (two) times a day 05/27/2022 pravastatin (PRAVACHOL) 40 mg tablet Take 40 mg by mouth nightly 05/27/2022 no115/iron/folic acid ( 19 ORAL) Take by mouth sertraline (ZOLOFT) 50 mg tablet Take 50 mg by mouth daily 05/27/2022 documented as of this encounter Discharge Disposition Disposition Code Departure Means Destination Discharge to home or self care documented in this encounter Plan of Treatment Not on file documented as of this encounter Procedures Procedure Name Priority Date/Time Associated Diagnosis Comments SCREENING MAMMOGRAM BILATERAL W SALEEM Schedule Routine, Read Routine (OP Routine) 07/24/2025 1:39 PM CANOE BUILDER Screening mammogram, encounter for documented in this encounter Results * Screening Mammogram Bilateral W Saleem (07/24/2025 1:39 PM CANOE BUILDER) Anatomical Region Laterality Modality Breast Bilateral Mammography Impressions 07/25/2025 9:32 AM CANOE BUILDER Bilateral No evidence of malignancy in either breast. OVERALL BI-RADS FINAL ASSESSMENT: 1 - Negative RECOMMENDATION: Recommend bilateral annual screening mammography. Narrative 07/25/2025 9:32 AM CANOE BUILDER EXAMINATION: Screening Mammogram Bilateral W Saleem: 07/24/2025 COMPARISON: Relevant prior studies available at the time of interpretation were reviewed, including the most recent mammogram on: 04/08/2024. TECHNIQUE: Mammography was performed with 2D and 3D digital breast tomosynthesis (DBT) images. CAD was utilized. BREAST PARENCHYMAL COMPOSITION: The breasts are almost entirely fatty. FINDINGS: Bilateral There is no suspicious mass, calcification, or architectural distortion in either breast. us Self Screening Mammogram IMG MAMMO PROCEDURES Fi nal Result documented in this encounter Visit Diagnoses Diagnosis Screening mammogram, encounter for documented in this encounter Care Teams Manugrapher Relationship Specialty Start Date End Date Fermin Castro MD [address] [place], [place] [id number] PCP - General 04/17/18 documented as of this encounter
--- NOTE | ~2025-07-25 | US_ITS ---
EXAMINATION: Ultrasound abdomen Limited kidneys: DATE: 07/25/2025. INDICATION: Follow-up of 4 cm cystic mass of right kidney noted on previous MRI lumbar spine. TECHNIQUE: Views of the kidneys were obtained including Doppler. COMPARISON: MRI lumbar spine dated 07/17/2025. FINDINGS: The kidneys are normal in size measuring and length of 9.2 cm on the right and 9.4 cm on the left. Couple of cystic lesions of right kidney are noted measuring up to 4 x 3 cm in size consistent with MRI findings. Left kidney contains a couple of smaller cysts, measuring up to 2 cm in diameter. The cysts are thin-walled and unilocular. No obstructive changes. No focal lesions of the bladder. IMPRESSION: 1. Simple cysts of both kidneys. Dominant cyst of right kidney measures 4 x 3 cm in size. Reviewed, dictated and finalized at location T. [facility] IMPRESSION: 1. Simple cysts of both kidneys. Dominant cyst of right kidney measures 4 x 3 c m in size.
--- OUTSIDE RECORDS SUMMARY | 2025-07-25 13:24 | XMS_ITS | Clinical Summary ---
Author Organization [facility] [address] Address [address] [place] [phone] Care Team Providers Care Industrial Real Estate Agent Name Role Phone Unavailable Primary Care Provider [...] Encounters Date Type Department Care Team Description 07/22/2025 External Device Data STL ABSTRACTION Provider, Abstract 06/25/2025 External Device Data STL ABSTRACTION Provider, [...] on file Legal Sex Female 2:13 PM RETAIL LOAN OFFICER Gender Identity Not on file Sexual Orientation [...] st Contact Info) Description 10/09/2025 10:30 AM RETAIL LOAN OFFICER Office Visit [facility] [address] [place] [address] Milo Lyles MD [address] [place] [address] Health Maintenance Due Date Last [...] (1 - 1-dose 75+ series) 2030 Insurance [facility] SUPP MEDICARE PART A AND B
--- OUTSIDE RECORDS SUMMARY | 2025-07-25 13:24 | XMS_ITS | Clinical Summary ---
Author Organization [facility] Address [address] [place] [phone] Care Team Providers Care Farm Products Shipper Name Role Phone Fermin Castro MD Primary [...] insulin dependent 06/24/2022 History of syncope 06/24/2022 Encounters Date Type Department Care Team Description 07/24/2025 1:18 PM WIND OPERATIONS SUPERVISOR - 07/24/2025 11:59 PM WIND OPERATIONS SUPERVISOR Hospital Encounter [facility] Imaging and Radiology [address] [place] [phone] Screening mammogram, encounter for Discharge Disposition: Discharge to home or self care from Last 3 Months Family History Medical History Relation Name Comments Breast cancer Neg Hx Ovarian cancer Neg Hx Pancreatic cancer Neg Hx Prostate cancer Neg Hx Thyroid cancer Neg Hx Relation Name Status Comments Daughter Alive Social History Tobacco Use Types Packs/Day Years Used Date Smoking Tobacco: Never Smokeless Tobacco: Never Tobacco Cessation:Counseling Given: Not Answered Comments No Sex and Gender Information Value Date Recorded Sex Assigned at Not on file Legal Sex Female 4:11 PM WIND OPERATIONS SUPERVISOR Gender Identity Not on file Sexual Orientation Not on file Obstetrics History Para Term AB IAB SAB Ectopic Multiple Livin g Live Births 4 4 4 Date Outcome GA Total Labor Labor//3rd Weight Sex Type Anes PTL Nithya A1 A5 Name Clin Term Term Term Term Last Filed Vital Signs Vital Sign Reading Time Taken Comments Blood Pressure 122/74 08/12/2022 2:39 PM WIND OPERATIONS SUPERVISOR Pulse 90 08/12/2022 2:39 PM WIND OPERATIONS SUPERVISOR Temperature - - Respiratory Rate - - Oxygen Saturation 96% 08/12/2022 2:39 PM WIND OPERATIONS SUPERVISOR Inhaled Oxygen Concentration - - Weight 86.2 kg (190 lb) 07/24/2025 1:25 PM WIND OPERATIONS SUPERVISOR Height 154.3 cm (5' 0.75) 07/24/2025 1:25 PM CS T Body Mass Index 36.2 07/24/2025 1:25 PM WIND OPERATIONS SUPERVISOR Plan of Treatment Health Maintenance Due Date [...] Panel 06/24/2023 06/24/2022 Breast Cancer Screening-Mammogram 04/08/2025 07/24/2025, 04/08/2024, 02/28/2023, Additional history exists Influenza Vaccine (#1) 2025 9, 06/01/2018, 06/01/2018, Additional history exists DTaP/Tdap/Td Vaccine (2 - Td or Tdap) 12/13/2027 12/12/2017 Procedures Procedure Name Priority Date/Time Associated Diagnosis Comments SCREENING MAMMOGRAM BILATERAL W SALEEM Schedule Routine, Read Routine (OP Routine) 07/24/2025 1:39 PM WIND OPERATIONS SUPERVISOR Screening mammogram, encounter for POCT LIPID PANEL Routine 06/24/2022 9:08 AM CDT Lipid screening from Last 3 Months or Most Recently Relevant to Health Maintenance Results * Screening Mammogram Bilateral W Saleem (07/24/2025 1:39 PM WIND OPERATIONS SUPERVISOR) Anatomical Region Laterality Modality Breast Bilateral Mammography Impressions 07/25/2025 9:32 AM WIND OPERATIONS SUPERVISOR Bilateral No evidence of malignancy in either breast. OVERALL BI-RADS FINAL ASSESSMENT: 1 - Negative RECOMMENDATION: Recommend bilateral annual screening mammography. Narrative 07/25/2025 9:32 AM WIND OPERATIONS SUPERVISOR EXAMINATION: Screening Mammogram Bilateral W Saleem: 07/24/2025 [...] Capillary blood 06/24/2022 9 :08 AM CDT [facility] Isaura Peter MD POINT OF CARE TEST MARIO SILVA Final Result from Last 3 Months or Most Recently Relevant to Health Maintenance Insurance [employer] MEDICARE COMMERCIAL GENERIC MEDICARE COMMERCIAL GENERIC Care Teams Farm Products Shipper Relationship Specialty Start Date End Date Fermin Castro MD [address] [place] [address] PCP - General 04/17/18
== END 2025-07-25 13:19 | disposition home or self-care (01) ==
LOC: CHSIMG 13:21
PROVIDERS: PCP Family Medicine; Visit Provider Nurse Practitioner Family
DX: N28.1 Cyst of kidney, acquired (principal)
CPT/HCPCS: 76770